=== PATIENT | female | born 1985 | race Caucasian/White ===

== ENCOUNTER 2017-02-20 21:10 | Emergency (ER) | payer MEDICAID ==
[2017-02-20 21:15] VITALS: BP 125/70
--- NOTE | 2017-02-20 21:53 | ER Document Report ---
ED Extremity Problem, Lower - General Chief Complaint: Knee Pain Stated Complaint: LEFT KNEE PAIN Time Seen by Provider: 02/20/17 21:44 Notes: Patient is a 31-year-old female presents emergency department with a complaint of knee swelling. Patient states that she has had left knee pain for about 2 weeks she had a shower today with mild increase in swelling of the left knee. She states that she does walk a lot at work denies any heavy lifting at work denies any twisting injury. She states that the aches behind her kneecap. But she denies any pain with active range of motion. She denies any redness over her knee. Been able to walk without any difficulty TRAVEL OUTSIDE OF THE [place] IN LAST 30 DAYS: No - Related Data Allergies/Adverse Reactions: No Known Allergies Allergy (Unverified 02/20/17 21:12) Home Medications: Current Home Medications No Home Medications 02/20/17 [History] Past Medical History - Social History Smoking Status: Current Every Day Smoker Chew tobacco use (# tins/day): No Frequency of alcohol use: None Drug Abuse: None Family History: Reviewed & Not Pertinent Patient has suicidal ideation: No Patient has homicidal ideation: No Renal/ Medical History: Denies: Hx Peritoneal Dialysis Past Surgical History: Reports: Hx Tonsillectomy Review of Systems - Review of Systems Constitutional: No symptoms reported Musculoskeletal: See HPI Skin: See HPI -: Yes All other systems reviewed and negative Physical Exam - Vital signs Vitals: Temp Pulse Resp BP Pulse Ox 98.2 F 82 18 125/70 98 02/20/17 21:13 02/20/17 21:13 02/20/17 21:13 02/20/17 21:13 02/20/17 21:13 - General General appearance: Appears well, Alert In distress: None - Cardiovascular Pulses: Normal: Popliteal, Dorsalis pedis Normal capillary refill: Yes - Extremities General lower extremity: Normal inspection, Nontender, Normal color, Normal ROM , Normal strength, Normal temperature, Normal weight bearing. No: Radha's sign Thigh: Normal, Nontender Knee: Normal, Nontender. No: Tender, Abrasion, Deformity, Dislocation, Drawer' s test instability, Ecchymosis, Instability, Joint effusion, Laceration, Laxity with valgus stress, Laxity with varus stress, Pain with ROM, Patellar tendon intact, Popliteal fossa tender, Tender joint line, Unable to bear weight Calf: Normal, Nontender. No: Unable to bear weight Ankle: Normal, Nontender Foot: Normal, Nontender - Neurological Motor strength normal: LLE, RLE Additional motor exam normals: No: Weakness Sensory: Normal - Skin Skin Temperature: Warm Skin Moisture: Dry Skin Color: Normal Skin Turgor: Elastic Course - Re-evaluation Re-evalutation: 02/20/17 22:43 No evidence of a septic joint, gout flare, dislocation, or fracture on exam and imaging. Vitals wnl. At this time, I do not see an indication for labs or further imaging. Will discharge with conservative measures, return precautions, and follow-up recommendations. - Vital Signs Vital signs: Temp Pulse Resp BP Pulse Ox 98.2 F 82 18 125/70 98 02/20/17 21:13 02/20/17 21:13 02/20/17 21:13 02/20/17 21:13 02/20/17 21:13 Discharge - Discharge Clinical Impression: Knee pain Qualifiers: Chronicity: acute Laterality: left Qualified Code(s): M25.562 - Pain in left knee Condition: Good Disposition: HOME, SELF-CARE Instructions: Suspected Internal Knee Injury ([facility]), Ice & Elevation ([facility]) Additional Instructions: If your symptoms continue please follow-up with your primary care provider for reevaluation possible additional imaging. if they really do not find
--- NOTE | 2017-02-20 22:21 | RADIOLOGY REPORT (SQ) ---
EXAM DESCRIPTION: KNEE LEFT 3 VIEWS COMPLETED DATE/TIME: 02/20/2017 10:11 pm REASON FOR STUDY: swelling COMPARISON: None. NUMBER OF VIEWS: Three views TECHNIQUE: AP, lateral, and sunrise patella radiographic images acquired of the left knee. LIMITATIONS: None. FINDINGS: MINERALIZATION: Normal. BONES: No acute fracture or dislocation. No worrisome bone lesions. JOINT: No effusion. SOFT TISSUES: No soft tissue swelling. No radio-opaque foreign body. OTHER: No other significant finding. IMPRESSION: NEGATIVE STUDY OF THE LEFT KNEE. NO RADIOGRAPHIC EVIDENCE OF ACUTE INJURY. TECHNICAL DOCUMENTATION: JOB ID: [id number] [employer]- All Rights Reserved
== END 2017-02-20 22:55 | disposition home or self-care (01) ==
LOC: ER 21:10
DX: M25.562 Pain in left knee (principal); M79.89 Other specified soft tissue disorders; F17.200 Nicotine dependence, unspecified, uncomplicated
CPT/HCPCS: 99283

== ENCOUNTER → 2017-08-04 | Outpatient (CLI) | payer MEDICAID ==
--- NOTE | 2017-08-04 14:46 | WOMENS IMAGING REPORT ---
EXAM DESCRIPTION: U/S BREAST UNILATERAL, COMPL COMPLETED DATE/TIME: 08/04/2017 2:29 pm REASON FOR STUDY: RT BREAST LUMP N63.0 N63.0 UNSPECIFIED LUMP IN UNSPECIFIED BREAST COMPARISON: None TECHNIQUE: Static and Realtime grayscale interrogation of the entire right breast(s) acquired. Marysol martino color doppler/spectral images saved to PACS. LIMITATIONS: None. FINDINGS: Masses:The palpable finding adjacent to the areola at the 7 to 8 o'clock location is a mayte id mass measuring 1.5 x 1.7 cm. Round with fairly smooth margins. Homogeneous echogenicity. Architecture:No alteration of normal morphology. No skin thickening. No edema. Other: None. IMPRESSION: Solid mass corresponding to the palpable finding. This does not have particularly worri some characteristics but malignancy cannot be excluded. Biopsy should be considered. BIRAD: 4 Suspicious. Biopsy should be considered. RECOMMENDATION: RECOMMENDED FOLLOW-UP: Biopsy should be considered. The lesion is amenable to ultra sound-guided biopsy. COMMENT: The [employer] (ACR) has developed recommendations for screening MRI of the breasts in certain patient populations, to be used in conjunction with mammography. Breast MRI s urveillance may be appropriate for women with more than 20% lifetime risk of developing breast cancer as determined by genetic testing, significant family history of the disease, or history of mantle r adiation for Hodgkins Disease. ACR Practice Guidelines 2008. TECHNICAL DOCUMENTATION: FINDING NUMBER: (1) ASSESSMENT: (1) JOB ID: [id number] [employer]- All Rights Reserved Reading location - IP/workstation name: [email or web address]
== END ==
LOC: WI 13:34
PROVIDERS: ATTEND Physician Assistant
DX: N63.10 Unspecified lump in the right breast, unspecified quadrant (principal)
CPT/HCPCS: 76641

== ENCOUNTER 2018-02-05 11:11 | Emergency (ER) | payer MEDICAID ==
[2018-02-05 11:19] VITALS: BP 132/72
[2018-02-05] MEDS ORDERED: IBUPROFEN 800 MG TABLET PO ONE (11:35)
[2018-02-05] MEDS ORDERED: CEPHALEXIN 500 MG CAPSULE PO ONE (11:35)
--- NOTE | 2018-02-05 11:38 | ER Document Report ---
HPI - HPI Patient complains to provider of: Right foot pain Onset: Other - 3 days Onset/Duration: Worse Quality of pain: Achy Pain Level: 3 Context: Patient presents complaining of right foot pain for the past 3 days. Patient states she noticed a streak going up her foot yesterday. Patient denies any fever. Patient denies any injury. Patient complains of pain to the webspace between her right fourth and fifth toes. Associated Symptoms: Other - Right foot pain. denies: Fever Exacerbated by: Movement Relieved by: Denies Similar symptoms previously: No Recently seen / treated by doctor: No - ROS ROS below otherwise negative: Yes Systems Reviewed and Negative: Yes All other systems reviewed and negative - MUSCULOSKELETAL Musculoskeletal: REPORTS: Extremity pain - R foot. DENIES: Swelling - DERM Skin Color: Erythema Past Medical History - General Information source: Patient - Social History Smoking Status: Current Every Day Smoker Frequency of alcohol use: None Drug Abuse: None Occupation: Retail Lives with: Spouse/Significant other Family History: Reviewed & Not Pertinent Patient has suicidal ideation: No Patient has homicidal ideation: No - Medical History Medical History: Negative Renal/ Medical History: Denies: Hx Peritoneal Dialysis Past Surgical History: Reports: Hx Tonsillectomy Vertical Provider Document - CONSTITUTIONAL Agree With Documented VS: Yes Exam Limitations: No Limitations General Appearance: WD/WN, No Apparent Distress - INFECTION CONTROL TRAVEL OUTSIDE OF THE [place] IN LAST 30 DAYS: No - HEENT HEENT: Atraumatic, Normocephalic - NECK Neck: Normal Inspection - RESPIRATORY Respiratory: Breath Sounds Normal, No Respiratory Distress - CARDIOVASCULAR Cardiovascular: Regular Rate, Regular Rhythm Pulses: Normal: Dorsalis pedis - BACK Back: Normal Inspection - MUSCULOSKELETAL/EXTREMETIES Musculoskeletal/Extremeties: MAEW, Tender - Right foot tenderness between right fourth and fifth toes. Patient with fluid-filled skin lesion to webspace with erythematous streak going up dorsal aspect of right foot - NEURO Level of Consciousness: Awake, Alert, Appropriate Motor/Sensory: No Motor Deficit - DERM Notes: Erythema to dorsal aspect of right foot extending from skin lesion to webspace of right fourth and fifth toes. Course - Vital Signs Vital signs: Temp Pulse Resp BP Pulse Ox 97.9 F 90 20 132/72 H 97 02/05/18 11:18 02/05/18 11:18 09/08/18 11:18 02/05/18 11:18 02/05/18 11:18 Discharge - Discharge Clinical Impression: Cellulitis of foot Condition: Stable Disposition: HOME, SELF-CARE Instructions: Cellulitis ([facility]), Cephalexin ([facility]) Additional Instructions: Return immediately for any new or worsening symptoms Followup with your primary care provider, call tomorrow to make a followup appointment Keep area clean and covered with gauze to help keep it dry. Prescriptions: Cephalexin Monohydrate [Keflex 500 mg Capsule] 500 mg PO Q6H 7 Days capsule Naproxen [Naprosyn 250 Nmg Tablet] 1 tab PO BID #14 tablet Forms: Smoking Cessation Education Referrals: SELMA SU PA-C [Primary Care Provider] - Follow up as needed
== END 2018-02-05 11:48 | disposition home or self-care (01) ==
LOC: ER 11:11
DX: L03.119 Cellulitis of unspecified part of limb (principal); M79.671 Pain in right foot; F17.200 Nicotine dependence, unspecified, uncomplicated
CPT/HCPCS: 99283; 87070; 87205; J3490

== ENCOUNTER → 2018-06-14 | Outpatient (CLI) | payer MEDICAID ==
--- NOTE | 2018-06-30 09:08 | WOMENS IMAGING REPORT ---
EXAM DESCRIPTION: BILAT DIAGNOSTIC MAMMO W/CAD; U/S BREAST UNILATERAL, COMPL COMPLETED DATE/TIME: 06/14/2018 10:28 am; 06/14/2018 10:56 am REASON FOR STUDY: N63.10 UNSPECIFIED LUMP IN THE RIGHT BREAST, UNSPECIFIED QUADRANT; N63.10 UNSPECIF IED LUMP IN RIGHT BREAST N63.10 UNSPECIFIED LUMP IN THE RIGHT BREAST, UNSPECIFIED RACHEL COMPARISON: Breast ultrasound 08/04/2017 TECHNIQUE: Standard craniocaudal and mediolateral oblique views of each breast recorded using digita l acquisition. Additional right breast 90 mediolateral view Additional right breast cone compression views in the CC and MLO orientations Because of a palpable abnormality, right breast ultrasound was performed. LIMITATIONS: None. FINDINGS: RIGHT BREAST MASSES: In the right retroareolar location, 7 to 8 o'clock, a well-circumscribed hypoechoic solid nod ule is present, 6 x 5 mm in size. Because of its close location to the nipple, this most likely repr esents a papilloma. Excisional biopsy is recommended, this is a palpable finding. CALCIFICATIONS: No new or suspicious calcifications. ARCHITECTURAL DISTORTION: None. DEVELOPING DENSITY: None. ASYMMETRY: None noted. OTHER: No other significant findings. LEFT BREAST MASSES: No suspicious masses. CALCIFICATIONS: No new or suspicious calcifications. ARCHITECTURAL DISTORTION: None. DEVELOPING DENSITY: None. ASYMMETRY: None noted. OTHER: No other significant finding. Read with the assistance of CAD: .[facility] - R2 Cenova Version 1.3 .[facility] - R2 Cenova Version 2.1 .[facility] - R2 Cenova Version 2.4 .[facility] - R2 Cenova Version 2.4 .[facility] - R2 Photographer Version 9.2 IMPRESSION: Probable right breast retroareolar papilloma. Biopsy is recommended. Because this is a palpable finding, excisional biopsy is appropriate BREAST DENSITY: b. There are scattered areas of fibroglandular density. BIRAD: 4 Suspicious. Biopsy should be considered. RECOMMENDATION: RECOMMENDED FOLLOW UP: Birads 4: Biopsy should be performed in the absence of clinic al contraindication.Small solid right breast retroareolar nodule is palpable. This is likely a papil gonzalo in the retroareolar region. Consider excisional biopsy SPECIFIC INTERVENTION/IMAGING/CONSULTATION RECOMMENDED:Excisional biopsy recommended COMMUNICATION:Patient notified by letter COMMENT: The patient has been notified of the results by letter per MQSA requirements. Additional no tification policies are in place for contacting patient with suspicious or incomplete findings. Quality ID #[id number]: The [employer] recommends an annual screening mammogram for women aged 40 years or over. This facility utilizes a reminder system to ensure that all patients receive reminder letters, and/or direct phone calls for appointments. This includes reminders for routine scr eening mammograms, diagnostic mammograms, or other Breast Imaging Interventions when appropriate. Th is patient will be placed in the appropriate reminder system. The [employer] (ACR) has developed recommendations for screening MRI of the breast s in certain patient populations, to be used in conjunction with mammography. Breast MRI surveillanc e may be appropriate for women with more than 20% lifetime risk of developing breast cancer as deter mined by genetic testing, significant family history of the disease, or history of mantle radiation f or Hodgkins Disease. ACR Practice Guidelines 2008. TECHNICAL DOCUMENTATION: FINDING NUMBER: (1) ASSESSMENT: (1) JOB ID: [id number] [employer]- All Rights Reserved Reading location - IP/workstation name: [email or web address]
--- NOTE | 2018-06-30 09:08 | WOMENS IMAGING REPORT ---
EXAM DESCRIPTION: BILAT DIAGNOSTIC MAMMO W/CAD; U/S BREAST UNILATERAL, COMPL COMPLETED DATE/TIME: 06/14/2018 10:28 am; 06/14/2018 10:56 am REASON FOR STUDY: N63.10 UNSPECIFIED LUMP IN THE RIGHT BREAST, UNSPECIFIED QUADRANT; N63.10 UNSPECIF IED LUMP IN RIGHT BREAST N63.10 UNSPECIFIED LUMP IN THE RIGHT BREAST, UNSPECIFIED RACHEL COMPARISON: Breast ultrasound 08/04/2017 TECHNIQUE: Standard craniocaudal and mediolateral oblique views of each breast recorded using digita l acquisition. Additional right breast 90 mediolateral view Additional right breast cone compression views in the CC and MLO orientations Because of a palpable abnormality, right breast ultrasound was performed. LIMITATIONS: None. FINDINGS: RIGHT BREAST MASSES: In the right retroareolar location, 7 to 8 o'clock, a well-circumscribed hypoechoic solid nod ule is present, 6 x 5 mm in size. Because of its close location to the nipple, this most likely repr esents a papilloma. Excisional biopsy is recommended, this is a palpable finding. CALCIFICATIONS: No new or suspicious calcifications. ARCHITECTURAL DISTORTION: None. DEVELOPING DENSITY: None. ASYMMETRY: None noted. OTHER: No other significant findings. LEFT BREAST MASSES: No suspicious masses. CALCIFICATIONS: No new or suspicious calcifications. ARCHITECTURAL DISTORTION: None. DEVELOPING DENSITY: None. ASYMMETRY: None noted. OTHER: No other significant finding. Read with the assistance of CAD: .[facility] - R2 Cenova Version 1.3 .[facility] - R2 Cenova Version 2.1 .[facility] - R2 Cenova Version 2.4 .[facility] [place] R2 Cenova Version 2.4 .[facility] - R2 [employer] Version 9.2 IMPRESSION: Probable right breast retroareolar papilloma. Biopsy is recommended. Because this is a palpable finding, excisional biopsy is appropriate BREAST DENSITY: b. There are scattered areas of fibroglandular density. BIRAD: 4 Suspicious. Biopsy should be considered. RECOMMENDATION: RECOMMENDED FOLLOW UP: Birads 4: Biopsy should be performed in the absence of clinic al contraindication.Small solid right breast retroareolar nodule is palpable. This is likely a papil gonzalo in the retroareolar region. Consider excisional biopsy SPECIFIC INTERVENTION/IMAGING/CONSULTATION RECOMMENDED:Excisional biopsy recommended COMMUNICATION:Patient notified by letter COMMENT: The patient has been notified of the results by letter per MQSA requirements. Additional no tification policies are in place for contacting patient with suspicious or incomplete findings. Quality ID #225: The [employer] recommends an annual screening mammogram for women aged 40 years or over. This facility utilizes a reminder system to ensure that all patients receive reminder letters, and/or direct phone calls for appointments. This includes reminders for routine scr eening mammograms, diagnostic mammograms, or other Breast Imaging Interventions when appropriate. Th is patient will be placed in the appropriate reminder system. The [employer] (ACR) has developed recommendations for screening MRI of the breast s in certain patient populations, to be used in conjunction with mammography. Breast MRI surveillanc e may be appropriate for women with more than 20% lifetime risk of developing breast cancer as deter mined by genetic testing, significant family history of the disease, or history of mantle radiation f or Hodgkins Disease. ACR Practice Guidelines 2008. TECHNICAL DOCUMENTATION: FINDING NUMBER: (1) ASSESSMENT: (1) JOB ID: [id number] [employer]- All Rights Reserved Reading location - IP/workstation name: [email or web address]
== END ==
LOC: WI 09:54
PROVIDERS: ATTEND Family Medicine
DX: N63.41 Unspecified lump in right breast, subareolar (principal)
CPT/HCPCS: 76641; 77066

== ENCOUNTER → 2018-11-14 | Outpatient (CLI) | payer MEDICAID ==
[~2018-11-14] MED LIST: LIDOCAINE 1% INJ-PF (10 MG/ML) 30 ML SDV ONE
--- NOTE | 2018-11-14 15:54 | WOMENS IMAGING REPORT ---
EXAM DESCRIPTION: 3D DX MAMMO RIGHT UNILAT; U/S BREAST UNILAT LIMITED COMPLETED DATE/TIME: 11/14/2018 1:46 pm; 11/14/2018 1:40 pm REASON FOR STUDY: R92.8 RIGHT BREAST; R92.8 OTHER ABNORMAL AND INCONCLUSIVE FINDINGS ON DIAGNOSTIC I MAGING OF EDSON R92.8 OTH ABN AND INCONCLUSIVE FINDINGS ON DX IMAGING OF EDSON COMPARISON: Ultrasound 08/04/2017, 06/14/2018 Diagnostic mammograms 06/14/2018 EXAM PARAMETERS: Standard craniocaudal, 90 mediolateral and mediolateral oblique images of the jace[address] [facility] recorded using digital acquisition and breast tomosynthesis. Additional right breast ultrasound performed by both myself as well as the technologist. Read with the assistance of CAD. .[facility] - [facility] [employer] Version 9.2 LIMITATIONS: None. FINDINGS: BREAST LATERALITY: right MASSES: No suspicious masses. Specifically, no persistent right retroareolar nodules are identified on today's mammography/tomosynthesis CALCIFICATIONS: No new or suspicious calcifications. ARCHITECTURAL DISTORTION: None. DEVELOPING DENSITY: None. ASYMMETRY: None noted. OTHER: No other significant findings. Right breast ultrasound: Ultrasound was performed by both myself as well as the technologist. No significant right retroareol ar findings are present. No nodule. No cysts. No dilated ducts. No worrisome acoustic absorption. IMPRESSION: No mammographic or sonographic evidence for malignancy right breast BREAST DENSITY: b. There are scattered areas of fibroglandular density. BIRAD: ASSESSMENT: 1 Negative. RECOMMENDATION: RECOMMENDED FOLLOW UP: Follow-up as per Dr. Matamoros SPECIFIC INTERVENTION/IMAGING/CONSULTATION RECOMMENDED:No additional intervention/ imaging/consultati on needed at this time. COMMUNICATION:The negative/benign results were communicated to the patient. COMMENT: The patient has been notified of the results by letter per MQSA requirements. Additional no tification policies are in place for contacting patient with suspicious or incomplete findings. Quality ID #225: The [employer] recommends an annual screening mammogram for women aged 40 years or over. This facility utilizes a reminder system to ensure that all patients receive reminder letters, and/or direct phone calls for appointments. This includes reminders for routine scr eening mammograms, diagnostic mammograms, or other Breast Imaging Interventions when appropriate. Th is patient will be placed in the appropriate reminder system. TECHNICAL DOCUMENTATION: FINDING NUMBER: (1) ASSESSMENT: (1) JOB ID: [id number] [employer]- All Rights Reserved Reading location - IP/workstation name: [email or web address]
--- NOTE | 2018-11-14 15:54 | WOMENS IMAGING REPORT ---
EXAM DESCRIPTION: 3D DX MAMMO RIGHT UNILAT; U/S BREAST UNILAT LIMITED COMPLETED DATE/TIME: 11/14/2018 1:46 pm; 11/14/2018 1:40 pm REASON FOR STUDY: R92.8 RIGHT BREAST; R92.8 OTHER ABNORMAL AND INCONCLUSIVE FINDINGS ON DIAGNOSTIC I MAGING OF EDSON R92.8 OTH ABN AND INCONCLUSIVE FINDINGS ON DX IMAGING OF EDSON COMPARISON: Ultrasound 08/04/2017, 06/14/2018 Diagnostic mammograms 06/14/2018 EXAM PARAMETERS: Standard craniocaudal, 90 mediolateral and mediolateral oblique images of the jace[address] recorded using digital acquisition and breast tomosynthesis. Additional right breast ultrasound performed by both myself as well as the technologist. Read with the assistance of CAD. .[facility] - [email or web address] Version 9.2 LIMITATIONS: None. FINDINGS: BREAST LATERALITY: right MASSES: No suspicious masses. Specifically, no persistent right retroareolar nodules are identified on today's mammography/tomosynthesis CALCIFICATIONS: No new or suspicious calcifications. ARCHITECTURAL DISTORTION: None. DEVELOPING DENSITY: None. ASYMMETRY: None noted. OTHER: No other significant findings. Right breast ultrasound: Ultrasound was performed by both myself as well as the technologist. No significant right retroareol ar findings are present. No nodule. No cysts. No dilated ducts. No worrisome acoustic absorption. IMPRESSION: No mammographic or sonographic evidence for malignancy right breast BREAST DENSITY: b. There are scattered areas of fibroglandular density. BIRAD: ASSESSMENT: 1 Negative. RECOMMENDATION: RECOMMENDED FOLLOW UP: Follow-up as per Dr. Matamoros SPECIFIC INTERVENTION/IMAGING/CONSULTATION RECOMMENDED:No additional intervention/ imaging/consultati on needed at this time. COMMUNICATION:The negative/benign results were communicated to the patient. COMMENT: The patient has been notified of the results by letter per MQSA requirements. Additional no tification policies are in place for contacting patient with suspicious or incomplete findings. Quality ID #225: The [employer] recommends an annual screening mammogram for women aged 40 years or over. This facility utilizes a reminder system to ensure that all patients receive reminder letters, and/or direct phone calls for appointments. This includes reminders for routine scr eening mammograms, diagnostic mammograms, or other Breast Imaging Interventions when appropriate. Th is patient will be placed in the appropriate reminder system. TECHNICAL DOCUMENTATION: FINDING NUMBER: (1) ASSESSMENT: (1) JOB ID: [id number] [employer]- All Rights Reserved Reading location - IP/workstation name: [email or web address]
== END ==
LOC: WI 12:51 → EDSTATUS 13:45
PROVIDERS: ATTEND Surgery
DX: R92.8 Other abnormal and inconclusive findings on diagnostic imaging of breast (principal)
CPT/HCPCS: 76642; J3490